=== PATIENT | male | born 1990 | race American Indian/Alaskan Native ===

== ENCOUNTER 2016-08-15 11:27 | Emergency (ER) | payer SELFPAY ==
[2016-08-15 11:41] VITALS: BP 140/91
--- NOTE | 2016-08-15 13:32 | Emergency Department Report ---
ED Seizure HPI - General Chief Complaint: Seizure Stated Complaint: SEIZURES/HEADACHE/CHEST PAIN Time Seen by Provider: 08/15/16 13:24 Source: patient Mode of arrival: Ambulatory Limitations: No Limitations - History of Present Illness MD Complaint: possible seizure -: Gradual Description of Episode: loss of consciousness Witnessed:: Yes Trauma: No Seizure History: known seizure disorder, history of non-compliance Place: home Possible Precipitating Event: none Associated Symptoms: denies other symptoms. denies: chest pain, confusion, fever/chills, loss of appetite, malaise, syncope, weakness, tongue injury Treatments Prior to Arrival: none - Related Data Previous Rx's Medication Instructions Recorded Last Taken Type Citalopram [celeXA] 20 mg PO QDAY #90 tablet 08/15/16 Unknown Rx Allergies Allergy/AdvReac Type Severity Reaction Status Date / Time No Known Allergies Allergy Verified 08/15/16 11:42 ED Review of Systems ROS: Stated complaint: SEIZURES/HEADACHE/CHEST PAIN Other details as noted in HPI Comment: All other systems reviewed and negative ED Past Medical Hx - Past Medical History Previous Medical History?: Yes Hx Seizures: Yes - Surgical History Past Surgical History?: No - Social History Smoking Status: Current Every Day Smoker Substance Use Type: None - Medications Home Medications: Home Medications Medication Instructions Recorded Confirmed Last Taken Type Citalopram [celeXA] 20 mg PO QDAY #90 tablet 08/15/16 Unknown Rx ED Physical Exam - General Limitations: No Limitations General appearance: alert, in no apparent distress - Head Head exam: Present: atraumatic, normocephalic - Eye Eye exam: Present: normal appearance - ENT ENT exam: Present: mucous membranes moist - Neck Neck exam: Present: normal inspection - Respiratory Respiratory exam: Present: normal lung sounds bilaterally. Absent: respiratory distress - Cardiovascular Cardiovascular Exam: Present: regular rate, normal rhythm. Absent: systolic murmur, diastolic murmur, rubs, gallop - GI/Abdominal GI/Abdominal exam: Present: soft, normal bowel sounds - Rectal Rectal exam: Present: deferred - Extremities Exam Extremities exam: Present: normal inspection - Back Exam Back exam: Present: normal inspection - Neurological Exam Neurological exam: Present: alert, oriented X3 - Psychiatric Psychiatric exam: Present: normal affect, normal mood - Skin Skin exam: Present: warm, dry, intact, normal color. Absent: rash ED Course Vital Signs 08/15/16 11:38 Temperature 98.3 F Pulse Rate 96 H Respiratory 16 Rate Blood Pressure 140/91 O2 Sat by Pulse 100 Oximetry ED Medical Decision Making - Medical Decision Making patient doing well, only in need for meds refill has no seizure or any symptoms at this time Critical care attestation.: If time is entered above; I have spent that time in minutes in the direct care of this critically ill patient, excluding procedure time. ED Disposition Clinical Impression: Seizure Disposition: DC- TO HOME OR SELFCARE Is pt being admited?: No Does the pt Need Aspirin: No Condition: Good Prescriptions: Citalopram [celeXA] 20 mg PO QDAY #90 tablet Referrals: PRIMARY CARE, [Primary Care Provider] - 3-5 Days Time of Disposition: 13:28
== END 2016-08-15 13:47 | disposition home or self-care (01) ==
LOC: ED 11:27
DX: R56.9 Unspecified convulsions (principal); F17.200 Nicotine dependence, unspecified, uncomplicated
CPT/HCPCS: 99281

== ENCOUNTER 2017-01-02 08:42 | Emergency (ER) | payer SELFPAY ==
[2017-01-02 10:01] LABS: Urine Drugs of Abuse Note Disclamer
[2017-01-02 10:15] LABS: Bilirubin,Urine NEG (Negative); Blood,Urine NEG (Negative); Ketones,Urine TR mg/dL (Negative); Leukocyte Esterase,Urine NEG (Negative); Mucus,Urine FEW /HPF; Nitrite,Urine NEG (Negative); Protein,Urine <15 mg/dL mg/dL (Negative)
[2017-01-02 10:22] LABS: Basophils % (Auto) 0.5 % (0.0-1.8); Eosinophils % (Auto) 0.2 % (0.0-4.3); Hematocrit 42.1 % (35.5-45.6); Hemoglobin 13.9 gm/dl (11.8-15.2); Mean Corpuscular HGB Conc 33 % (32-34); Mean Corpuscular Hemoglobin 29 pg (28-32); Mean Corpuscular Volume 87 fl (84-94); Platelet Count 149 K/mm3 (140-440); Red Blood Count 4.83 M/mm3 (3.65-5.03); Red Cell Distribution Width 15.4 % (13.2-15.2); White Blood Count 12.7 K/mm3 (4.5-11.0)
[2017-01-02 10:37] LABS: Anion Gap 16 mmol/L; BUN/Creatinine Ratio 16; Blood Urea Nitrogen 14 mg/dL (9-20); Carbon Dioxide 27 mmol/L (22-30); Chloride 104.1 mmol/L (98-107); Glucose 91 mg/dL (75-100); Potassium 3.7 mmol/L (3.6-5.0); Sodium 143 mmol/L (137-145)
--- NOTE | 2017-01-02 12:34 | Emergency Department Report ---
HPI - General Chief Complaint: Psych Time Seen by Provider: 01/02/17 12:11 - HPI HPI: Room 12 The patient is a 26-year-old male presenting with a chief complaint of suicidal gesture. EMS received a call for "possible suicide attempt." EMS states when they arrived on scene, [facility] police stated that the patient had eaten a portion of a bar of soap and drank approximately one half gallon of bleach. EMS stated the patient had the obvious odor of bleach upon him and had evidence of bleach on his clothing (see EMS report). In the ED the patient denies this and states that his "girls daughter" said that to get him out of the house. Patient denies auditory or visual hallucinations. Location: Mental state Duration: [See above] Quality: Suicidal Severity: Moderate Modifying factors: [see above] Context: [see above] Mode of transportation: [not driving] ED Past Medical Hx - Past Medical History Hx Seizures: Yes Hx Psychiatric Treatment: Yes (depression) - Surgical History Past Surgical History?: No - Family History Family history: no significant - Social History Smoking Status: Current Every Day Smoker (1/2 pack per day) Substance Use Type: None (denies illicit drug use) - Medications Home Medications: Home Medications Medication Instructions Recorded Confirmed Last Taken Type Citalopram [celeXA] 20 mg PO QDAY #90 tablet 08/15/16 Unknown Rx ED Review of Systems ROS: Stated complaint: ATTEMPTED INGESTION OF BLEACH Other details as noted in HPI Comment: All other systems reviewed and negative Constitutional: denies: chills, fever Eyes: denies: eye pain, eye discharge, vision change ENT: denies: ear pain, throat pain Respiratory: denies: cough, shortness of breath, wheezing Cardiovascular: denies: chest pain, palpitations Endocrine: no symptoms reported Gastrointestinal: denies: abdominal pain, nausea, diarrhea Genitourinary: denies: urgency, dysuria Musculoskeletal: denies: back pain, joint swelling, arthralgia Skin: denies: rash, lesions Neurological: denies: headache, weakness, paresthesias Psychiatric: suicidal thoughts (reported by EMS but patient denies). denies: auditory hallucinations, visual hallucinations, homicidal thoughts Hematological/Lymphatic: denies: easy bleeding, easy bruising Physical Exam - Physical Exam Vital Signs: Vital Signs 01/02/17 01/02/17 01/02/17 09:10 09:36 09:37 Temperature 98.7 F 98.7 F Pulse Rate 86 86 Respiratory 20 20 20 Rate Blood Pressure 143/90 Blood Pressure 143/90 [Left] O2 Sat by Pulse 99 99 99 Oximetry Physical Exam: GENERAL: The patient is well-developed well-nourished male lying on stretcher not appearing to be in acute distress. [] HEENT: Normocephalic. Atraumatic. Extraocular motions are intact. Patient has moist mucous membranes. NECK: Supple. Trachea midline CHEST/LUNGS: Clear to auscultation. There is no respiratory distress noted. HEART/CARDIOVASCULAR: Regular. There is no tachycardia. There is no gallop rub or murmur. ABDOMEN: Abdomen is soft, nontender. Patient has normal bowel sounds. There is no abdominal distention. SKIN: There is no rash. There is no edema. There is no diaphoresis. NEURO: The patient is awake, alert, and oriented. The patient is cooperative. The patient has normal speech and gait. MUSCULOSKELETAL: There is no evidence of acute injury. ED Course Vital Signs 01/02/17 01/02/17 01/02/17 09:10 09:36 09:37 Temperature 98.7 F 98.7 F Pulse Rate 86 86 Respiratory 20 20 20 Rate Blood Pressure 143/90 Blood Pressure 143/90 [Left] O2 Sat by Pulse 99 99 99 Oximetry - Consultations Consultation #1: 01/02/17 12:40 Poison control called- soap and also bleach GI irritants. Should see peak effects 2 hours after ingestion. If The patient is a symptomatic recommended mental health workup ED Medical Decision Making - Lab Data Result diagrams: 01/02/17 10:06 01/02/17 10:06 Laboratory Tests 01/02/17 01/02/17 01/02/17 10:06 10:06 10:06 WBC 12.7 H RBC 4.83 Hgb 13.9 Hct 42.1 MCV 87 MCH 29 MCHC 33 RDW 15.4 H Plt Count 149 Lymph % (Auto) 15.1 [place] % (Auto) 6.6 Eos % (Auto) 0.2 Baso % (Auto) 0.5 Lymph # 1.9 Corson # 0.8 Eos # 0.0 Baso # 0.1 Seg Neutrophils % 77.6 H Seg Neutrophils # 9.8 H Sodium 143 Potassium 3.7 Chloride 104.1 Carbon Dioxide 27 Anion Gap 16 BUN 14 Creatinine 0.9 Estimated GFR > 60 BUN/Creatinine Ratio 16 Glucose 91 Calcium 9.0 Urine Color Urine Turbidity Urine pH Ur Specific Bowdle Urine Protein Urine Glucose (UA) Urine Ketones Urine Blood Urine Nitrite Urine Bilirubin Urine Urobilinogen Ur Leukocyte Esterase Urine WBC (Auto) Urine RBC (Auto) U Epithel Cells (Auto) Urine Mucus Salicylates Urine Opiates Screen Urine Methadone Screen Acetaminophen Ur Barbiturates Screen Ur Phencyclidine Scrn Ur Amphetamines Screen U Benzodiazepines Scrn Urine Cocaine Screen U Marijuana (THC) Screen Drugs of Abuse Note Plasma/Serum Alcohol < 0.01 01/02/17 01/02/17 01/02/17 10:06 10:06 Unknown WBC RBC Hgb Hct MCV MCH MCHC RDW Plt Count Lymph % (Auto) Cors[place] % (Auto) Eos % (Auto) Baso % (Auto) Lymph # Cors[place] # Eos # Baso # Seg Neutrophils % Seg Neutrophils # Sodium Potassium Chloride Carbon Dioxide Anion Gap BUN Creatinine Estimated GFR BUN/Creatinine Ratio Glucose Calcium Urine Color Yellow Urine Turbidity Clear Urine pH 5.0 Ur Specific Bowdle 1.033 H Urine Protein <15 mg/dl Urine Glucose (UA) Neg Urine Ketones Tr Urine Blood Neg Urine Nitrite Neg Urine Bilirubin Neg Urine Urobilinogen 2.0 Ur Leukocyte Esterase Neg Urine WBC (Auto) 1.0 Urine RBC (Auto) 1.0 U Epithel Cells (Auto) < 1.0 Urine Mucus Few Salicylates < 0.3 L Urine Opiates Screen Urine Methadone Screen Acetaminophen < 15.0 Ur Barbiturates Screen Ur Phencyclidine Scrn Ur Amphetamines Screen U Benzodiazepines Scrn Urine Cocaine Screen U Marijuana (THC) Screen Drugs of Abuse Note Plasma/Serum Alcohol 01/02/17 Unknown WBC RBC Hgb Hct MCV MCH MCHC RDW Plt Count Lymph % (Auto) [place] % (Auto) Eos % (Auto) Baso % (Auto) Lymph # [place] # Eos # Baso # Seg Neutrophils % Seg Neutrophils # Sodium Potassium Chloride Carbon Dioxide Anion Gap BUN Creatinine Estimated GFR BUN/Creatinine Ratio Glucose Calcium Urine Color Urine Turbidity Urine pH Ur Specific Bowdle Urine Protein Urine Glucose (UA) Urine Ketones Urine Blood Urine Nitrite Urine Bilirubin Urine Urobilinogen Ur Leukocyte Esterase Urine WBC (Auto) Urine RBC (Auto) U Epithel Cells (Auto) Urine Mucus Salicylates Urine Opiates Screen Presumptive negative Urine Methadone Screen Presumptive negative Acetaminophen Ur Barbiturates Screen Presumptive negative Ur Phencyclidine Scrn Presumptive negative Ur Amphetamines Screen Presumptive positive U Benzodiazepines Scrn Presumptive negative Urine Cocaine Screen Presumptive negative U Marijuana (THC) Screen Presumptive positive Drugs of Abuse Note Disclamer Plasma/Serum Alcohol - Differential Diagnosis suicidal ideation Critical care attestation.: If time is entered above; I have spent that time in minutes in the direct care of this critically ill patient, excluding procedure time. ED Disposition Clinical Impression: Suicidal ideation, Suicide gesture Disposition: [id number] PSY HOSP/PSY UNIT Is pt being admited?: No Does the pt Need Aspirin: No Condition: Serious Time of Disposition: 12:51 (awaiting acceptance)
--- NOTE | 2017-01-03 13:20 | Consultation ---
History of Present Illness - Reason for Consult Consult date: 01/03/17 Reason for consult: Mental Health Evaluation Requesting physician: SHIVA SO - Chief Complaint Chief complaint: "I didn't drink bleach" - History of Present Psychiatric Illness The patient is a 26-year-old male presenting with a chief complaint of suicidal gesture. Today patient is calm and cooperative during the assessment. He stated that he did not drink bleach prior to coming to the hospital. He stated that he got in to an argument with his girlfriend and her daughter called the police. He stated that his girlfriend's daughter told the police that he drink bleach. He stated that he was cleaning the house prior to there arrival, that's why he smelled like bleach. He stated that he has a mental health dx of ADHD and take Adderall. He denies SI/HI's and AVH's. He denies depression and any manic episodes. He stated that he smoke marijuana for recreational use. He denies excessive alcohol consumption (etoh). Medications and Allergies Allergies Allergy/AdvReac Type Severity Reaction Status Date / Time No Known Allergies Allergy Verified 08/15/16 11:42 Home Medications Medication Instructions Recorded Confirmed Last Taken Type Citalopram [celeXA] 20 mg PO QDAY #90 tablet 08/15/16 01/03/17 Unknown Rx Past psychiatric history - Past Medical History Past Medical History: No medical history Past Surgical History: No surgical history - past Psychiatric treatment and history psychiatric treatment history: Stated that he is seen by Dr Kasper for ADHD. He denies a fam psy hx. - Social History Social history: lives with family ([employer] graduate) Mental Status Exam - Vital signs Last Vital Signs Temp 98.5 F 01/02/17 21:42 Pulse 82 01/02/17 21:42 Resp 18 01/02/17 21:42 BP 136/88 01/02/17 21:42 Pulse Ox 98 01/02/17 21:42 - Exam Narrative exam: MSE: Appearance: calm, cooperative Behavior: regular eye contact Speech: regular rate and tone Mood: "okay" Affect: congruent to mood Thought Process: circumstantial Thought Content: denies SI/HI's and AVH's Motor Activity: ambulatory Cognition: A/O x3 Insight: variable Judgment: variable Results Result Diagrams: 01/02/17 10:06 01/02/17 10:06 All other labs normal. Assessment and Plan Assessment and plan: Impression: Today patient is calm and cooperative during the assessment. Recommendation/Plan: Continue 1013. Gather collateral from family to determine proper dispo and treatment.
--- NOTE | 2017-01-04 12:51 | Progress Note ---
Subjective - Reason for Consult Consult date: 01/04/17 Reason for consult: Psychiatry Follow-up - Chief Complaint Chief complaint: "When can I leave" The patient is a 26-year-old male presenting with a chief complaint of suicidal gesture. Today patient is calm and cooperative during the assessment. He is adamant about not drinking bleach or eating soap. Per collateral information from his friend Ms Lois Pedro, she stated that the patient did drink bleach and ate a piece of soap. She stated this isn't the first the time patient tried to harm himself. She stated that she is "scared" and prefer that the patient not return to her home once discharged. The patient denies SI/HI's and AVH's. He stated that he took Celexa in the past for a month, but could not say why he was prescribed the medication. Mental Status Exam - Vital signs Last Vital Signs Temp 98.5 F 01/04/17 09:48 Pulse 82 01/04/17 09:48 Resp 16 01/04/17 09:51 BP 127/74 01/04/17 09:48 Pulse Ox 98 01/04/17 09:51 - Exam Narrative exam: MSE: Appearance: calm, cooperative Behavior: regular eye contact Speech: regular rate and tone Mood: "okay" Affect: congruent to mood Thought Process: circumstantial Thought Content: denies SI/HI's and AVH's Motor Activity: ambulatory Cognition: A/O x3 Insight: variable Judgment: variable Assessment and Plan Impression: Today patient is calm and cooperative during the assessment. Recommendation/Plan: Continue 1013 with placement to Inpatient psy services. Contact his mother to gather more collateral information.
[2017-01-05 11:11] VITALS: BP 127/89
== END 2017-01-05 11:15 ==
LOC: ED 08:42 → EEVIPCON 08:42 → ED 01-05 11:15
DX: R45.851 Suicidal ideations (principal); R56.9 Unspecified convulsions; F32.9 Major depressive disorder, single episode, unspecified; F17.200 Nicotine dependence, unspecified, uncomplicated
CPT/HCPCS: 36415; 80048; 80307; 81001; 85025; 99285; G0480; 80320